=== PATIENT | male | born 1965 | race Caucasian/White ===

== ENCOUNTER 2024-08-28 23:52 | Emergency (ER) | payer OTHER ==
[~2024-08-28] VITALS: Ht 188 cm; Wt 152.3 kg
[2024-08-29] MEDS ORDERED: LEVOTHYROXINE175 MCG (00:02)
[2024-08-29] MEDS ORDERED: LISINOPRIL20 MG (00:02)
[2024-08-29] MEDS ORDERED: SERTRALINE HCL100 MG (00:02)
[2024-08-29] MEDS ORDERED: BISOPROLOL FUMAR5 MG (00:02)
[2024-08-29] MEDS ORDERED: AMLODIPINE BESYL5 MG (00:02)
[2024-08-29] MEDS ORDERED: KETOROLAC TROMETHAMINE 15 MG/ML VIAL IV ONE (00:15)
[2024-08-29] MEDS ORDERED: ondansetron HCL 4 MG/2 ML VIAL IV PRN (00:15)
[2024-08-29 00:30] LABS: ALBUMIN 3.7 g/dL (3.4-5.0); ALBUMIN/GLOBULIN RATIO 1.09 (1.1-2.4); ANION GAP 13.2 (7-21); BILIRUBIN, TOTAL 0.4 mg/dL (0.2-1.0); BUN/CREATININE RATIO 22.22 (6.0-28.6); CALCIUM 8.9 mg/dL (8.5-10.1); CREATININE, SERUM 1.26 mg/dL (0.70-1.30); POTASSIUM 4.2 mmol/L (3.5-5.1); PROTEIN, TOTAL 7.1 g/dL (6.4-8.2)
[2024-08-29] MEDS ORDERED: HYDROmorphone HCL 1 MG/ML SYR IV PRN (00:30)
[2024-08-29] MEDS ORDERED: TAMSULOSIN HCL 0.4 MG CAP PO ONE (00:45)
[2024-08-29] MEDS ORDERED: LACTATED RINGER'S 1,000 ML IV ONE (00:45)
[2024-08-29 00:47] LABS: BASOPHILS 0.1 % (0-2); EOSINOPHILS 1.1 % (0-6); HEMATOCRIT 42.4 % (35.0-50.0); HEMOGLOBIN 14.6 g/dL (12.0-18.0); LYMPHOCYTES 12.1 % (24-44); MCH 30.4 (27-36); MCHC 34.5 g/dl (30-36); MCV 87.9 fl (81-99); MONOCYTES 5.1 % (0-12); NEUTROPHILS 81.6 % (39-80); PLATELET COUNT 272 K/uL (140-440); RBC 4.82 M/ul (4.3-5.7); RDW 13.3 (10.5-15.0)
[2024-08-29] MEDS ORDERED: OXYCODONE/APAP 5/325 TAB PO ONE (01:30)
[2024-08-29] MEDS ORDERED: FLOMAX0.4 MG PO (02:11)
[2024-08-29] MEDS ORDERED: PERCOCET 5-3251 EACH PO (02:12)
[2024-08-29] MEDS ORDERED: OXYCODONE/ACETAMINOPHEN 1 TAB HOME.PACK PO ONE (02:15)
[2024-08-29 02:31] LABS: BILIRUBIN, URINE NEGATIVE (negative); BLOOD/HGB, URINE SMALL (Negative); KETONE, URINE NEGATIVE (Negative); LEUK ESTERASE, URINE NEGATIVE (negative); NITRITE, URINE NEGATIVE (negative)
[2024-08-29 02:35] LABS: BACTERIA, URINE NONE SEEN /hpf (negative); CASTS, URINE NONE SEEN \\lpf; COLLECTION TYPE, URINE CLEAN CATCH; CRYSTALS, URINE NONE SEEN (0-1+); EPITHELIAL CELLS, URINE SQUAMOUS 1+ /lpf (0-1+); RED BLOOD CELLS, URINE 0-1 /hpf (0-5); REFLEX CULTURE, URINE No (No); WHITE BLOOD CELLS, URINE 0-1 /HPF (0-5)
[2024-08-29 02:59] VITALS: BP 139/105
== END 2024-08-29 02:58 | disposition home or self-care (01) ==
LOC: ED 23:52
PROVIDERS: Internal Medicine
DX: N13.2 Hydronephrosis with renal and ureteral calculous obstruction (principal); K63.89 Other specified diseases of intestine; Z79.890 Hormone replacement therapy; Z79.899 Other long term (current) drug therapy
CPT/HCPCS: 36415; 51798; 74176; 80053; 81001; 85025; 96375; 96376; 99284-25; J1171; J1885; J2405; J7121

== ENCOUNTER 2024-09-10 08:32 | Day surgery (SDC) | payer OTHER ==
[~2024-09-10] VITALS: Ht 188 cm; Wt 150.0 kg
[~2024-09-10 08:32] MED LIST: AMLODIPINE BESYL5 MG; BISOPROLOL FUMAR5 MG; FLOMAX0.4 MG PO; IBLOOD GLUCOSE TEST STRIP 1 EA TEST VI PRN; LACTATED RINGER'S 1,000 ML IV SCH; LEVOTHYROXINE175 MCG; LIDOCAINE HCL 1% 5 ML SDV INJ ONE; LISINOPRIL20 MG; MIDAZOLAM HCL 5 MG/5 ML VIAL IV PRN; PERCOCET 5-3251 EACH PO; SERTRALINE HCL100 MG; fentaNYL citrate 100 MCG/2 ML VIAL IV PRN
[2024-09-10 08:44] VITALS: BP 147/99
[2024-09-10] MEDS ORDERED: XANAX0.25 MG PO (08:48)
[2024-09-10] MEDS ORDERED: fentaNYL citrate 100 MCG/2 ML VIAL ONE (09:11)
[2024-09-10] MEDS ORDERED: MIDAZOLAM HCL 5 MG/5 ML VIAL ONE (09:11)
--- NOTE | 2024-09-10 10:44 | NUR ---
09/10/24 1044 Brenda Pace 1022 PT ARRIVED IN PACU WIDE AWAKE AND CRACKING JOKES. ABD SOFT. 1026 PT REPOSITIONED SELF TO BACK AND SITTING UP IN BED. 1035 DR AT BEDSIDE. ALL QUESTIONS ANSWERED.
[2024-09-10 10:46] VITALS: BP 129/81
--- NOTE | 2024-09-10 14:16 | OR ---
[facility] [address], [place] [address] Signed DATE OF OPERATION: 09/10/2024 SURGEON: Simon Goncalves MD PREOPERATIVE DIAGNOSES: 1. Positive Cologuard test. 2. 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 POSTOPERATIVE DIAGNOSES: 1. Normal cecum and ileum. 2. Polyps x2 and diverticulosis. PROCEDURE: Total colonoscopy to cecum with hot snare polypectomy x2 surgeon. ANESTHESIA: Intravenous sedation, fentanyl 150 mcg and Versed 7 mg. INDICATIONS: This 59-year-old white man is a patient of Dr. Lisa Lynn. He was found to have a positive Cologuard test and plans were made for colonoscopy. In the meantime, he recently suffered an episode of left flank pain undergoing CT scan of the abdomen through the emergency room showing a nonobstructing stone and a possible mass of the cecum in the ileocecal valve area. Mindful of positive Cologuard test and this finding on CT scan, expedited colonoscopy has been recommended. The risk of bleeding, infection, and perforation related to colonoscopy was related to him. He understands and wished to proceed. FINDINGS: The prep was excellent. Complete and full intubation of the cecum was accomplished. There was no evidence of problem of the cecum in any way. He did have two sessile polyps, one of the sigmoid and other of the rectosigmoid, both were excised with hot snare polypectomy technique. Additionally, he had a few diverticula of the sigmoid. DESCRIPTION OF PROCEDURE: The patient was brought to the surgical endoscopy suite and placed in lateral decubitus position given intravenous sedation to the point of slurred speech and nystagmus with full cardiopulmonary monitoring. Additional sedation was given as needed. Digital rectal examination was normal. Electronically Signed By: SIMON GONCALVES MD 09/10/24 1416 PATIENT NAME: GRACIA MCCALL OPERATIVE REPORT DATE OF : 65 REPORT #: [id number] PHYSICIAN: SIMON GONCALVES MD PCP: LISA LYNN MD REPORT IS CONFIDENTIAL AND NOT TO BE RELEASED WITHOUT AUTHORIZATION [facility] [address] [place], [place] [address] Signed An Olympus video colonoscope was passed into the rectum and manipulated noting two 1 cm polyps in the rectosigmoid and sigmoid as well as diverticula. Scope was advanced beyond this ultimately to the cecum. The ileocecal valve and appendiceal orifice were entirely normal. The scope was withdrawn from that point. Examination throughout showed no sign of abnormality other than diverticula of the sigmoid and left colon until that point, which the polyps were once again identified, they were this relatively sessile and were excised with hot snare polypectomy technique independently and passed for pathology. The rectum was normal. Scope was removed. The patient was taken to the recovery room in good condition. CONCLUDING DIAGNOSIS: Polyps x2 and diverticulosis. PLAN: Recommend repeat colonoscopy in 5-7 years or sooner if symptoms should develop. He will return to the ongoing care of Dr. Lynn. MD PB Simpson/OSCAR /[id number] cc: Lisa Lynn MD Copies: ~ Electronically Signed By: SIMON GONCALVES MD 09/10/24 1416 PATIENT NAME: GRACIA MCCALL OPERATIVE REPORT DATE OF : 65 REPORT #: [id number] PHYSICIAN: SIMON GONCALVES MD PCP: LISA LYNN MD REPORT IS CONFIDENTIAL AND NOT TO BE RELEASED WITHOUT AUTHORIZATION
--- NOTE | 2024-09-12 16:55 | PATH ---
[facility] [address] [facility] [place] [address] Signed SPECIMEN(S): A SIGMOID POLYP SPECIMEN(S): B RECTOSIGMOID POLYP SPECIMEN SOURCE: A. SIGMOID POLYP B. RECTOSIGMOID POLYP CLINICAL HISTORY: Positive Cologuard test, CT of abdomen abnormal, diverticulosis FINAL PATHOLOGIC DIAGNOSIS: A. Sigmoid polyp: - Tubular adenoma (one fragment). B. Rectosigmoid polyp: - Tubular adenoma (one fragment). JVR:sctoty MICROSCOPIC EXAMINATION: Histologic sections of all submitted blocks are examined by light microscopy. These findings, together with the gross examination, support the pathologic diagnosis. GROSS DESCRIPTION: A. The specimen, labeled and designated "David, sigmoid polyp," is received in formalin and consists of a red-brown polypoid piece of tissue (0.7 x 0.5 x 0.4 cm). The resection margin is inked blue, and the tissue is bisected to reveal chicas soft cut surfaces. The specimen is submitted entirely in cassette (A1). B. The specimen, labeled and designated "Shodin, rectosigmoid polyp," is received in formalin and consists of a chicas polypoid piece of tissue (0.8 x 0.6 x 0.5 cm). The possible resection margin is inked blue, and the tissue is bisected to reveal pink-chicas soft cut surfaces. The specimen is submitted entirely in cassette (B1). VB (under the direct supervision of a pathologist) The Gross Description was prepared using a voice recognition system. The report was reviewed for accuracy; however, sound-alike word errors, addition and/or deletions may occur. If there is any question about this report, please contact Client Services. PERFORMING LABORATORY: The technical component was performed by [email or web address], [address] [place], [place] [address]tano Anish, PATIENT NAME: GRACIA MCCALL PATHOLOGY DATE OF : 65 REPORT #: [id number] PHYSICIAN: [facility] PCP: BRUCE HOPPER MD REPORT IS CONFIDENTIAL AND NOT TO BE RELEASED WITHOUT AUTHORIZATION [facility] [address] [place], [place] [address] [place] [address] (CLIA# [id number]). Professional interpretation was performed by [facility], [address] [place] [id number] (CLIA#: [id number]). Diagnostician: Sp Forde MD Pathologist Electronically Signed 09/12/2024 Copies: ~ PATIENT NAME: GRACIA MCCALL PATHOLOGY DATE OF : 65 REPORT #: [id number] PHYSICIAN: [facility] PCP: BRUCE HOPPER MD REPORT IS CONFIDENTIAL AND NOT TO BE RELEASED WITHOUT AUTHORIZATION
== END 2024-09-10 11:00 | disposition home or self-care (01) ==
LOC: DS 08:32
PROVIDERS: ATTEND Surgery
PROC: 0DBN8ZZ Excision of Sigmoid Colon, Via Natural or Artificial Opening Endoscopic (ICD-10-PCS; principal; 2024-09-10 09:30)
DX: Z12.11 Encounter for screening for malignant neoplasm of colon (principal); D12.5 Benign neoplasm of sigmoid colon; D12.7 Benign neoplasm of rectosigmoid junction; K57.30 Diverticulosis of large intestine without perforation or abscess without bleeding; I10 Essential (primary) hypertension; E66.01 Morbid (severe) obesity due to excess calories; Z68.41 Body mass index [BMI] 40.0-44.9, adult; Z87.442 Personal history of urinary calculi; Z79.899 Other long term (current) drug therapy
CPT/HCPCS: 99153; G0500; J2250; J3010; J7121